=== PATIENT | female | born 1985 | race Caucasian/White ===

== ENCOUNTER 2020-08-25 14:02 | Outpatient (CLI) | payer OTHER | END 2020-08-25 14:03 | disposition home or self-care (01) | LOC: LAB 14:02 | PROVIDERS: ATTEND Physician Assistant Medical | DX: E03.9 Hypothyroidism, unspecified (principal) | CPT/HCPCS: 36415; 84443 ==

== ENCOUNTER 2020-12-28 07:00 | Outpatient (CLI) | payer OTHER | END 2020-12-28 23:59 | disposition home or self-care (01) | LOC: LAB 07:00 | PROVIDERS: ATTEND Physician Assistant Medical | DX: E03.9 Hypothyroidism, unspecified (principal) | CPT/HCPCS: 36415; 84443 ==

== ENCOUNTER 2022-11-21 18:05 | Outpatient (CLI) | payer OTHER ==
--- NOTE | 2022-11-22 09:31 | XRAY Report ---
PROCEDURE: Chest 2 View X-Ray INDICATIONS: COUGH TECHNIQUE: 2 views of the chest were acquired. COMPARISON: None FINDINGS: Surgical changes and devices: None. Lungs and pleura: No pleural effusions or pneumothorax. Lungs are clear. Mediastinum: Mediastinal contours are normal. Heart size is normal. Bones and chest wall: No suspicious bony abnormalities. Soft tissues appear unremarkable. IMPRESSION: Chest without acute cardiopulmonary abnormalities or focal airspace disease. Reviewed by: Valeriy Yanez MD on 11/22/2022 9:29 AM [facility] Approved by: Valeriy Yanez MD on 11/22/2022 9:29 AM [facility] Station ID: [id number]
== END 2022-11-21 23:59 | disposition home or self-care (01) ==
LOC: DI.N 18:05
PROVIDERS: ATTEND Family Medicine
DX: R05.9 Cough, unspecified (principal)

== ENCOUNTER 2023-10-07 08:59 | Outpatient (CLI) | payer OTHER ==
[~2023-10-07 08:59] MED LIST: GADOTERATE MEGLUMINE 10 MMOL/20 ML VIAL ONE
--- NOTE | 2023-10-07 16:37 | MRI Report ---
PROCEDURE: MRI brain and internal auditory canals with and without contrast INDICATIONS: 37-year-old female with left sensorineural hearing loss, TECHNIQUE: Multiplanar multi sequential MRI images of the brain and skull base with and without intr avenous contrast were obtained. Thin section T2 weighted images through both internal auditory canals were also obtained. COMPARISON: None. FINDINGS: Internal auditory canals: Cisternal and intracanalicular segments of both 7th and 8th cranial nerve c omplexes are unremarkable. No abnormal enhancement. Inner ear structures are appropriately formed. 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 No hydrocephalus. Brain: No intracranial bleeds or mass effects. Rm-white matter interface is intact. No abnormal intracranial enhancement. Diffusion weighted images demonstrate no acute infarct. Brainstem appears normal. Normal intravascular flow voids are present. Skull and face: Calvarial marrow signal is normal. Orbits appear normal. Sinuses: Sinuses and mastoids are clear. IMPRESSION: Unremarkable internal auditory canals without evidence of acoustic schwannoma Incidental colpocephaly. 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 Reviewed by: Ang Acosta MD on 10/07/2023 3:36 PM [facility] Approved by: Ang Acosta MD on 10/07/2023 3:36 PM [facility] Station ID: [id number]
[2023-10-07] MEDS ORDERED: GADOTERATE MEGLUMINE 10 MMOL/20 ML VIAL IVP ONE (17:44)
== END 2023-10-07 09:00 | disposition home or self-care (01) ==
LOC: DI 08:59
PROVIDERS: ATTEND Otolaryngology
DX: H90.3 Sensorineural hearing loss, bilateral (principal)
CPT/HCPCS: 70553; A9575

== ENCOUNTER 2024-02-26 18:02 | Outpatient (CLI) | payer OTHER | END 2024-02-26 23:59 | disposition left against medical advice (07) | LOC: EMS 18:02 | DX: R51.9 Headache, unspecified (principal) ==